=== PATIENT | male | born 1995 | race Caucasian/White ===

== ENCOUNTER 2019-03-11 06:07 | Emergency (ER) | payer SELFPAY ==
[2019-03-11 06:07] VITALS: BP 132/84; PULSE 83; RESP 18; TEMP 36.9; O2SAT 98; BMI 25.7
--- NOTE | 2019-03-11 07:09 | RAD_ITS ---
STUDY: X-RAY - LEFT SHOULDER REASON FOR EXAM: Fall on shoulder one week ago. TECHNIQUE: 4 view(s) of the shoulder. COMPARISON: None. FINDINGS: Normal glenohumeral articulation. There is acromioclavicular separation with elevation of the distal clavicle greater than one bone width. Normal acromion. Normal humeral head and visualized proximal humerus. The soft tissue structures are unremarkable. Normal visualized pulmonary apex. RAD/Shoulder min 2 Views IMPRESSION: Acromioclavicular separation. Electronically Signed: Amador Benito MD at 7:58 EDT Tel , Service support ,
[2019-03-11 07:36] VITALS: RESP 18
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
--- NOTE | 2019-03-11 08:24 | ED.DEP ---
ED Disposition - Plan for ED Patient: Disposition: Home or Assisted Living Instructions: Scabies, Ac Joint Sprain Prescriptions: Permethrin [Elimite] 60 gm TP X1 #1 cream..g. Prescription Printed Referrals: Soy Angel MD [STAFF PHYSICIAN] - Additional Instructions: You have a separation of your left shoulder called an AC separation. Your clavicle was from your. Sling. Tylenol Motrin for pain. You will need to follow-up with orthopedic physician for this. This may or may not improve it potentially may need surgical repair. For the rash that may be scabies use the Elimite and then reuse again in a week. Get rid of all your bad clothing.
[2019-03-11 08:31] VITALS: RESP 18
== END 2019-03-11 08:36 | disposition home or self-care (01) ==
PROVIDERS: Emergency Provider Emergency Medicine
DX: S43.102A Unspecified dislocation of left acromioclavicular joint, initial encounter (principal); V29.9XXA Motorcycle rider (driver) (passenger) injured in unspecified traffic accident, initial encounter; Y93.9 Activity, unspecified; Y92.9 Unspecified place or not applicable; Y99.9 Unspecified external cause status; R21 Rash and other nonspecific skin eruption; L29.9 Pruritus, unspecified; J02.9 Acute pharyngitis, unspecified; J45.909 Unspecified asthma, uncomplicated
CPT/HCPCS: 73030; 99284

== ENCOUNTER 2019-09-11 22:23 | Emergency (ER) | payer SELFPAY ==
[2019-09-11 22:24] VITALS: BP 110/63; PULSE 143; RESP 18; TEMP 36.9; O2SAT 98; BMI 28.5
--- NOTE | 2019-09-11 22:41 | ED.VISSUMM ---
- ER Visit Summary Date of Service: 09/11/19 Chief Complaint: Heroin overdose History of Present Illness: The patient is a 23 M who presents after heroin overdose tonight. Patient states he injects heroin daily. EMS administered 8 mg of Narcan intranasally. Patient was awake and alert after this. Currently, the patient denies any symptoms. Patient states he feels fine. Patient is asking for drink of water. Patient denies any nausea or vomiting. Patient denies any chest pain or shortness of breath. Patient denies any recent fevers or chills. Physical Examination: Vital signs are stable. Patient is afebrile. Patient is in no acute distress. Oral mucosa is pink and moist. Neck is supple. Trachea is midline. There is no JVD noted. Heart was regular rate and rhythm. Lungs are clear and equal bilaterally. Abdomen is soft. Bowel sounds are normal. There is no tenderness. There is no rebound or guarding noted. Skin is warm dry. Cranial nerves II through XII are intact. There are no focal motor or sensory deficits noted. Extremities are intact. There is no calf tenderness or edema. Emergency Department Course and Treatment: Patient was observed in the emergency department. Patient was resting comfortably on reevaluation. Patient remained awake and alert after 2-1/2 hours of observation. Patient was given a referral for 180. Patient was instructed to follow-up as soon as he can. Patient understood and was agreeable with the plan. All questions were answered. Disposition: Discharge home Impression: 1. Heroin overdose This note was generated with [employer] dictation software. It may contain incorrect words, spelling, and punctuation that were not noted in review of the chart prior to signing ED Disposition - Plan for ED Patient: Disposition: Home or Assisted Living Diagnosis: Accidental heroin overdose Instructions: ED Abuse Narcotic Referrals: Care Physician,No Primary [Primary Care Provider] - 5-7 Days [facility] [STAFF PHYSICIAN] - As soon as possible
[2019-09-12 01:02] VITALS: BP 104/49; PULSE 82; RESP 16; O2SAT 96
== END 2019-09-12 01:05 | disposition home or self-care (01) ==
LOC: ED 22:47
PROVIDERS: Emergency Provider Emergency Medicine
DX: T40.1X1A Poisoning by heroin, accidental (unintentional), initial encounter (principal); Y92.9 Unspecified place or not applicable
CPT/HCPCS: 99284

== ENCOUNTER 2019-09-27 21:34 | Emergency (ER) | payer SELFPAY ==
[2019-09-27 21:34] VITALS: BP 154/98; PULSE 98; RESP 16; TEMP 36.8; O2SAT 98; BMI 28.1
[2019-09-27] MEDS: Naloxone 2 MG/2 ML Syringe NS ×2 (21:34)
[2019-09-27] MEDS: Naloxone 2 MG/2 ML Syringe IV (21:36)
[2019-09-27 21:52] VITALS: BP 134/84; PULSE 121; RESP 18; O2SAT 100
--- NOTE | 2019-09-27 22:18 | ED.DCSUM_ITS ---
- ER Visit Summary Date of Service: 09/27/19 Chief Complaint: Altered mental status History of Present Illness: The patient is a 23 M who was dropped off in the ambulance bay by 2 females. They found him at [facility]. Patient is unresponsive and unable to provide any history. Nursing does recognize him as an IV drug abuser. Physical Examination: Patient presents with a weak pulse and agonal respirations. He is slightly cyanotic. Test Results: None performed Emergency Department Course and Treatment: Patient was seen immediately in the resuscitation bay. [id number] ventilation was performed. He was treated with 2 mg of naloxone intranasal, and then a second 2 mg of naloxone intranasal. He was placed on a monitor. He was tachycardic but otherwise his vitals were fine. Cyanosis resolved. He was starting to breathe on his own. IV access was obtained and he received an additional 2 mg of naloxone IV. Patient improved greatly. He was subsequently alert and oriented. HEENT exam unremarkable except for mild resolved epistaxis. Neck is nontender. Heart is tachycardic but regular. Lungs are clear. Abdomen is soft. Patient has track turner to his extremities. Patient has no further complaints. He said this is happened before. He will be observed in the emergency department for rebound narcosis, hypoxia, or other complications. Pending normal observation, he will be discharged for outpatient follow-up. Treatment Plan: As above Disposition: Discharge pending Impression: Opioid overdose This note was generated with [employer] dictation software. It may contain incorrect words, spelling, and punctuation that were not noted in review of the chart prior to signing ED Disposition - Plan for ED Patient: Referrals: Care Physician,No Primary [Primary Care Provider] -
--- NOTE | 2019-09-27 22:21 | ED.DEP ---
ED Disposition - Plan for ED Patient: Instructions: ED Overdose Opiate
[2019-09-27 22:55] VITALS: BP 110/65; PULSE 102; RESP 17; O2SAT 98
== END 2019-09-27 23:11 | disposition home or self-care (01) ==
LOC: ED 21:50
PROVIDERS: Emergency Provider Emergency Medicine
DX: T40.2X1A Poisoning by other opioids, accidental (unintentional), initial encounter (principal); R40.20 Unspecified coma; R00.0 Tachycardia, unspecified; R23.0 Cyanosis; Y92.524 Gas station as the place of occurrence of the external cause
CPT/HCPCS: 96374; 99284; A4216

== ENCOUNTER 2019-09-28 17:46 | Emergency (ER) | payer SELFPAY ==
[2019-09-28 17:46] VITALS: BP 146/7; PULSE 116; RESP 14; O2SAT 100
[2019-09-28 17:47] VITALS: BP 146/74; PULSE 114; RESP 14; TEMP 37.2; O2SAT 100; BMI 24.4
--- NOTE | 2019-09-28 18:13 | CT_ITS ---
STUDY: CT BRAIN WITHOUT CONTRAST REASON FOR EXAM: Male, 23 years old. Head injury, overdosed today. RADIATION DOSAGE (If Supplied By Facility): CTDIvol = ( 60.81 ) mGy, DLP = ( 1067.08 ) mGycm TECHNIQUE: Transaxial CT imaging of the brain was performed without administration of intravenous contrast material. Individualized dose optimization techniques were used for this CT. COMPARISON: No relevant priors. FINDINGS: Normal soft tissue structures. Normal calvarium. Normal size ventricles and extra-axial spaces for the patient''s age. Normal white matter tracts of the cerebral hemispheres. Normal basal ganglia and thalami. Normal brainstem. Normal cerebellum. There is no intracranial hemorrhage. There are no findings of an acute ischemic infarction. Normal visualized paranasal sinuses. CT/Brain/Head without Contrast IMPRESSION: Normal unenhanced CT scan of the brain. Electronically Signed: Aiden Swanson MD at 19:31 EDT , Service support ,
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
[2019-09-28 18:39] LABS: Absolute Lymphocyte Count 1.13 X10^3/uL (0.83-4.51); Absolute Neutrophil Count 6.1 X10^3/uL (2.0-7.7); Basophil# 0.03 X10^3/uL; Basophil% 0.4 % (0-1); Eosinophil# 0.13 X10^3/uL; Eosinophils% 1.7 % (0-5); Hematocrit 38.7 % (40-54); Hemoglobin 12.7 g/dL (13.0-16.5); Lymphocyte # 1.13 X10^3/ul (4.0); Lymphocyte % 14.5 % (19-41); Mean Corp Hgb Conc 32.8 g/dL (32-36); Mean Corpuscular Hgb 30.5 pg (27.0-32.0); Mean Corpuscular Volume 92.8 fL (80-94); Mean Platelet Vol. 8.3 fl (6.2-12.0); Monocyte# 0.41 X10^3/uL; Monocyte% 5.3 % (0-10); NRBC Flagged by Analyzer 0 % (0-5); Neutrophil # 6.06 X10^3/uL (2.7-7.7); Platelet Count 284 K/mm3 (150-450); RBC Distribution Width CV 12.4 % (11.6-14.6); RBC Distribution Width SD 42.1 fl (35.1-43.9); Red Blood Count 4.17 M/mm3 (4.6-6.2); White Blood Count 7.8 K/mm3 (4.4-11.0)
[2019-09-28 18:54] LABS: ALB/GLOB Ratio 0.7 RATIO (0.9-2.4); AST(SGOT) 33 U/L (15-37); Alanine Aminotransfer ALT/SGPT 47 U/L (16-61); Albumin, Serum 3.1 g/dL (3.2-5.0); Alkaline Phosphatase 109 U/L (45-117); Anion Gap 5 (5-15); BUN 16 mg/dL (7-18); BUN/Creat Ratio 21.6 RATIO (10-20); Calcium,Total 8.6 mg/dL (8.5-10.1); Chloride 107 mmol/L (98-107); Creatinine, Serum 0.74 mg/dL (0.70-1.30); EST Glomerular Filtration Rate 136 mL/min (>60); Est Glom Filt Rate - Afr Amer 165 mL/min (>60); Estimated Creatinine Clearance 167.49 ml/min; Globulin 4.2 g/dL (2.2-4.2); Glucose 163 mg/dL (74-106); Potassium 3.5 mmol/L (3.5-5.1); Protein, Total 7.3 g/dL (6.4-8.2); Sodium Level 140 mmol/L (136-145)
[2019-09-28 18:57] LABS: International Normalized Ratio 1.2; Prothrombin Time (Protime)PT. 14.5 SECONDS (11.7-14.9)
[2019-09-28 18:58] LABS: Partial Thromboplast Time 29.4 Seconds (24.1-36.2)
[2019-09-28 19:35] VITALS: BP 100/50; RESP 14
[2019-09-28 20:24] VITALS: BP 109/60; PULSE 97; RESP 15; O2SAT 100
[2019-09-28 21:16] VITALS: BP 132/100; PULSE 101; RESP 17; O2SAT 98
== END 2019-09-28 21:17 | disposition home or self-care (01) ==
PROVIDERS: Emergency Provider Emergency Medicine
DX: T40.601A Poisoning by unspecified narcotics, accidental (unintentional), initial encounter (principal); S09.90XA Unspecified injury of head, initial encounter; M54.2 Cervicalgia; Z87.891 Personal history of nicotine dependence; F12.90 Cannabis use, unspecified, uncomplicated
CPT/HCPCS: 36415; 70450; 80053; 85025; 85610; 85730; 99285; A4216